=== PATIENT | female | born 1960 | race Hispanic/Latino ===

== ENCOUNTER 2017-07-09 06:03 | Inpatient (IN) | payer MEDICARE, OTHER ==
[2017-07-07 12:49] VITALS: BMI 22.9
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
[2017-07-09] MEDS ORDERED: Rocuronium 10 mg/ml (5 ml) ONE (07:36)
[2017-07-09] MEDS ORDERED: Midazolam 2 MG/2 ML VIAL ONE (07:36)
[2017-07-09] MEDS ORDERED: Propofol 10 mg/ml Inj (20 ML) ONE (07:36)
[2017-07-09] MEDS ORDERED: ceFAZolin IV 2 gm in Dextrose 1 GM/50 ML BAG IVPB ONE (08:01)
[2017-07-09] MEDS ORDERED: Vasopressin 20 Units/ml Inj ONE (08:30)
[2017-07-09] MEDS ORDERED: Lactated Ringer's 1,000 ML IV ONE ×4 (08:35→11:01)
[2017-07-09] MEDS ORDERED: Labetalol 25mg/5ml Syringe ONE (09:24)
[2017-07-09] MEDS ORDERED: Neostigmine Methylsulfate 3mg/3ml Syringe IV ONE (09:42)
[2017-07-09] MEDS ORDERED: Clindamycin 2% Vaginal Cream(40 gm) ONE (10:16)
[2017-07-09] MEDS ORDERED: Methylene Blue 10 mg/mL(10ml) IV ONE (10:57)
--- NOTE | 2017-07-09 11:26 | PCM.SURG1 ---
Surgeon's Initial Post Op Note - Surgeon's Notes Surgeon: Dr Carbajal Telecommunications Engineer: Jennifer Alfaro ( FP Resident ) Type of Anesthesia: General Endo Anesthesia Administered By: JOSE Mcelroy, Supervised by Dr Be Pre-Operative Diagnosis: 57yo with uterovaginal Prolapse, cystocele and rectocele. Operative Findings: Normal sized uterus with moderate prolapse, a prominent cystocele and a mild rectocele. IVF Intake- 2.2 liters. EBL- 80mls. Urine Output- 220mls Post-Operative Diagnosis: Same as Preop Diagnosis Operation Performed: Total Vaginal Hysterectomy with Anterior and Posterior Colporrhaphy. Cystoscopy Specimen/Specimens Removed: Uterus with the cervix Estimated Blood Loss: EBL {In ML}: 80 Blood Products Given: N/A Post-Op Condition: Good Date of Surgery/Procedure: 07/09/17 Time of Surgery/Procedure: 11:27
[2017-07-09] MEDS ORDERED: Lactated Ringer's 1,000 ML IV SCH (11:30)
[2017-07-09] MEDS: HYDROmorphone 0.5 mg/0.5 ml ISec IVP PRN ×5 (11:41→13:16)
[2017-07-09] MEDS: cefOXitin IV 2 gm in Dextrose 2 GM/50 ML BAG IVPB SCH (17:19)
[2017-07-10 00:15] VITALS: RESP 20
[2017-07-10] MEDS: cefOXitin IV 2 gm in Dextrose 2 GM/50 ML BAG IVPB SCH ×2 (02:09→09:43)
[2017-07-10 08:01] LABS: HEMATOCRIT 33.1 % (34.0-47.0); MEAN CELL VOLUME 87.1 fL (81.0-99.0); MEAN CORPUSCULAR HEMOGLOBIN 29.5 pg (27.0-31.0); MEAN CORPUSCULAR HGB CONC 33.9 g/dL (33.0-37.0); RED CELL DISTRIBUTION WIDTH 13.7 % (11.5-14.5); WHITE BLOOD COUNT 10.3 K/uL (4.8-10.8)
[2017-07-10 08:14] LABS: CHLORIDE 104 mmol/L (98-107); SODIUM 141 mmol/L (132-148)
[2017-07-10 08:15] LABS: POTASSIUM 4.4 mmol/L (3.6-5.2)
[2017-07-10 08:17] LABS: GFR AFRICAN-AMERICAN > 60
[2017-07-10 08:18] LABS: BLOOD UREA NITROGEN 14 mg/dL (7-17); CALCIUM 8.7 mg/dl (8.6-10.4); CARBON DIOXIDE 27 mmol/L (22-30); GLUCOSE,RANDOM 83 mg/dL (65-105)
[2017-07-10] MEDS ORDERED: Morphine 15 mg SR Tab PO PRN (08:46)
[2017-07-10] MEDS: oxyCODONE 30 mg Immediate Release Tab PO PRN ×3 (09:39→17:54)
[2017-07-10] MEDS ORDERED: cefOXitin IV 2 gm in Dextrose 2 GM/50 ML BAG IVPB ONE (09:44)
[2017-07-10] MEDS ORDERED: Enoxaparin 40 mg Syringe SC SCH (11:31)
[2017-07-10] MEDS ORDERED: oxyCODONE 30 mg Immediate Release Tab PO PRN (15:22)
[2017-07-11] MEDS: oxyCODONE 30 mg Immediate Release Tab PO PRN ×2 (01:38→08:03)
[2017-07-11 08:25] VITALS: BP 150/83; PULSE 88; TEMP 99; O2SAT 99
--- NOTE | 2017-07-15 13:31 | OP ---
PROCEDURE DATE: PREOPERATIVE DIAGNOSES: A 57-year-old female with utero-vaginal prolapse, cystocele, and mild rectocele. POSTOPERATIVE DIAGNOSES: A 57-year-old female with utero-vaginal prolapse, cystocele, and mild rectocele. PROCEDURES DONE: A total vaginal hysterectomy, anterior and posterior vaginal wall repair, and cystoscopy performed on 07/09/2017. SURGEON: Dr. Carbajal. ASSISTANTS: Dr. Francis Chávez and Ivone Ramírez, family practice resident. TYPE OF ANESTHESIA: General endotracheal. ANESTHESIA ADMINISTERED BY: Jevon GARCIA, supervised by Dr. Be. FINDINGS: Normal sized uterus with moderate utero-vaginal prolapse, a prominent cystocele, and a mild rectocele. IV FLUID INTAKE: 2.2 L. ESTIMATED BLOOD LOSS: 8 mL. URINE OUTPUT: 220 mL of clear urine. COMPLICATIONS: There were no complications. SPECIMEN: Uterus stent to pathology. DESCRIPTION OF PROCEDURE: The patient was seen at a preop area. Risks, benefits, indications, and alternatives of the procedure were reviewed with the patient. The patient agreed to proceed and signed a consent form. The patient was taken to the OR with IV running and a pneumatic compression stockings applied to the lower extremities. General anesthesia was obtained without difficulty. The patient was placed in the dorsal lithotomy position with Ajith type stirrups. The buttock was repositioned slightly over the edge of the table. Examination under anesthesia revealed findings noted above. The patient was prepped and draped. A Londono catheter was inserted and the bladder was emptied. A weighted speculum was placed into the vagina. Anterior and posterior lips of the cervix were grasped with a double tooth tenaculum. With outward traction applied on the tenaculum, a circumferential incision was made with a Bovie at the cervicovaginal junction. The incision was carried down to the paracervical fascia allowing the cervix to separate from the vaginal mucosa. The bleeding spots were coagulated. The posterior cul-de-sac was then entered sharply with Osman scissors with a tip pointing to the uterus. The clear peritoneal fluid was noted. The mid length posterior peritoneum was sutured to the vaginal mucosa for later identification. A weighted speculum was removed a long weighted speculum was inserted into the cul-de-sac. The uterosacral ligaments were clamped with Kt clamps, cut and suture ligated followed by cardinal ligaments, significant uterine descent was noted. Then, attention was turned to entering the anterior peritoneum. With gentle downward traction on the cervix, the peritoneum was identified, picked up and entered sharply. A right angle retractor was inserted into the vesicouterine space. The uterine vessels were identified, clamped, and cut. The pedicles were doubly ligated. A broad and round ligaments were then clamped, cut and suture ligated. Finally, the ovarian ligaments and fallopian tubes were clamped, cut and doubly ligated using Kt clamps. The uterus was removed through the vagina. The ovaries and tubes were found to be normal. Examination of all the pedicles revealed good hemostasis. The peritoneum was at this point identified and a purse-string suture was placed around with a # 2-0 vicryl suture to close the peritoneum. A triangular portion of the anterior vaginal wall was identified and tacked with Allis clamps with a pointed edge towards the inferior portion of the urethra. This triangular area was incised after the bladder and prevesical fascia was peeled from this segment of vaginal mucosa. The Triangular portion of vaginal mucosa was incised with Osman scissors. Jaqueline's plication was then performed bringing the prevesical fascia from both sides to the midline using #0 Vicryl. This was done until the anterior wall of the vagina was strengthened with the perivesical fascia. The vaginal mucosa was at this point closed in a longitudinal fashion . Once the procedure has been completed, it was seen that the anterior wall of the vagina had been strengthened. Attention was turned to the posterior vaginal wall at this point where an incision was made at a posterior portion and the vaginal mucosa over the rectovaginal fascia was from the underlying tissues. The fascial defect was repaired and the muscles brought together. A small piece of posterior vaginal wall was excised in a triangular fashion and then repaired using #2-0 Vicryl until hemostasis was achieved. Once the procedure was completed, a cystoscopy to view the bladder was done. The bladder was filled with saline and the cystoscope was introduced. It was realized that there was no damage identified within the bladder roldan when all the areas were viewed. The urethral orifices were seen to be outputting fluid, which was enhanced with administration of Indigo carmine. Once the procedure was completed, all the instruments were taken out from the bladder and the vagina. The vagina was packed with bacitracin treated gauze. The patient was replaced in supine position and was sent to the recovery room awake and in stable condition. All counts were correct x3. Amilcar Carbajal MD MTDElder
== END 2017-07-11 10:50 | disposition home or self-care (01) | DRG 743 ==
LOC: C.SDS 06:03 → C.4M 11:27
PROVIDERS: ADMIT Obstetrics & Gynecology; ATTEND Obstetrics & Gynecology
PROC: 0UTC7ZZ Resection of Cervix, Via Natural or Artificial Opening (ICD-10-PCS; 2017-07-09)
PROC: 0JQC3ZZ Repair Pelvic Region Subcutaneous Tissue and Fascia, Percutaneous Approach (ICD-10-PCS; 2017-07-09)
PROC: 0JQC3ZZ Repair Pelvic Region Subcutaneous Tissue and Fascia, Percutaneous Approach (ICD-10-PCS; 2017-07-09)
PROC: 0UT97ZZ Resection of Uterus, Via Natural or Artificial Opening (ICD-10-PCS; principal; 2017-07-09 07:45)
DX: N81.2 Incomplete uterovaginal prolapse (principal); D25.2 Subserosal leiomyoma of uterus; K59.00 Constipation, unspecified; N81.6 Rectocele; Z87.01 Personal history of pneumonia (recurrent); Z87.440 Personal history of urinary (tract) infections